=== PATIENT | male | born 1975 | race Caucasian/White ===

== ENCOUNTER 2017-01-03 09:11 | Day surgery (SDC) | payer OTHER ==
[~2017-01-03] VITALS: Ht 190.5 cm; Wt 97.0 kg
[2017-01-03] VITALS (8 sets, daily range): BP systolic 114–146; BP diastolic 69–83; PULSE 65–80; RESP 16–20; Ht 190.5 cm; Wt 97.0 kg
[~2017-01-03 09:11] MED LIST: CEFAZOLIN 1 GM INJ ONE; CEFAZOLIN 2 GM/50 ML (PMX) 50 ML IVPB SCH; DEXAMETHASONE 4 MG/ML 1 ML INJ ONE; ONDANSETRON 4 MG INJ ONE; SOD CHLORIDE 0.9% 1,000 ML IV SCH; SUCCINYLCHOLINE CHLORIDE 100 MG/5 ML SYG IV ONE
[2017-01-03] MEDS ORDERED: BUPR1FIL3 SL (09:34)
[2017-01-03] MEDS ORDERED: BUPR8TAB SL (09:36)
[2017-01-03] MEDS ORDERED: POLYMYXIN/BACITRACIN 1L IRRIG ONE (10:05)
[2017-01-03] MEDS ORDERED: BUPIVACAINE 0.25% (MPF) 30 ML INJ ONE (10:05)
[2017-01-03 10:10] LABS: ADD SCAN DIFF NO
[2017-01-03 10:13] LABS: BASOPHILS % 0.7 % (0.0-2.0); EOSINOPHILS # 0.4 10^3/ul (0.0-0.5); EOSINOPHILS % 6.8 % (0.0-7.0); HEMATOCRIT 42.9 % (42.0-52.0); LYMPHOCYTES # 2.5 10^3/ul (0.8-2.9); LYMPHOCYTES % 44.8 % (15.0-51.0); MEAN CORPUSCULAR HEMOGLOBIN 27.7 pg (29.0-33.0); MEAN CORPUSCULAR HGB CONC 32.6 g/dl (32.0-37.0); MEAN CORPUSCULAR VOLUME 84.8 fl (82.0-101.0); MEAN PLATELET VOLUME 10.5 fl (7.4-10.4); MONOCYTE # 0.5 10^3/ul (0.3-0.9); MONOCYTES % 8.4 % (0.0-11.0); NEUTROPHIL # 2.2 10^3/ul (1.6-7.5); NEUTROPHILS % 39.1 % (39.0-77.0); PLATELET COUNT 194 10^3/UL (140-415); RED BLOOD COUNT 5.06 10^6/ul (4.70-6.10); WHITE BLOOD COUNT 5.6 10^3/ul (4.8-10.8)
[2017-01-03] MEDS ORDERED: PROPOFOL 20 ML ONE (10:13)
[2017-01-03] MEDS ORDERED: FENTAnyl 50 MCG/ML VIAL ONE (10:13)
[2017-01-03] MEDS ORDERED: GLYCOPYRROLATE 0.4 MG INJ ONE (10:13)
[2017-01-03] MEDS ORDERED: MIDAZOLAM 1 MG/ML 2 ML INJ ONE (10:13)
[2017-01-03] MEDS ORDERED: NEOSTIGMINE 3 MG/3 ML SYRINGE ONE (10:13)
[2017-01-03] MEDS ORDERED: ROCURONIUM 50 MG INJ ONE (10:13)
[2017-01-03] MEDS ORDERED: LIDOCAINE 2% (SDV) 5 ML INJ ONE (10:13)
[2017-01-03 10:32] LABS: INR 0.91; PROTIME 12.3 Sec (12.2-14.2)
[2017-01-03 10:33] LABS: PARTIAL THROMBOPLASTIN TIME 28.7 Sec (25.0-35.0)
[2017-01-03 10:37] LABS: ALBUMIN 4.5 g/dl (3.3-4.9); ALBUMIN/GLOBULIN RATIO 1.8; BILIRUBIN,INDIRECT 0.5 mg/dl (0-1.1); BILIRUBIN,TOTAL 0.5 mg/dl (0.2-1.3)
[2017-01-03 10:41] LABS: POTASSIUM 4.6 mmol/L (3.5-5.1)
[2017-01-03 10:42] LABS: CALCIUM 9.3 mg/dl (8.4-10.2); CREATININE 1.04 mg/dl (0.61-1.24)
[2017-01-03] MEDS ORDERED: POLYMYXIN/BACITRACIN 1L IRRIG IRR ONE (11:00)
[2017-01-03] MEDS ORDERED: BUPIVACAINE 0.25% (STERILE-PAK) 30 ML INJ INJ ONE (11:00)
[2017-01-03] MEDS ORDERED: morphine (1 MG/ML) 10ML SYRINGE IV PRN ×3 (11:30)
[2017-01-03] MEDS ORDERED: HYDROmorphONE (0.2 MG/ML) 10ML SYG IV PRN ×3 (11:30)
[2017-01-03] MEDS ORDERED: LABETALOL HCL 20MG INJ IV PRN (11:30)
[2017-01-03] MEDS ORDERED: DIPHENHYDRAMINE 50 MG INJ IV PRN (11:30)
[2017-01-03] MEDS ORDERED: EPHEDrine SULFATE 50 MG/5 ML SYG IV PRN (11:30)
[2017-01-03] MEDS ORDERED: ATROPINE 1 MG/10 ML SYRINGE IV PRN (11:30)
[2017-01-03] MEDS ORDERED: MIDAZOLAM 1 MG/ML 2 ML INJ IV PRN (11:30)
[2017-01-03] MEDS ORDERED: FENTAnyl 50 MCG/ML VIAL IV PRN ×2 (11:30)
[2017-01-03] MEDS ORDERED: MEPERIDINE 25 MG INJ IV PRN (11:30)
[2017-01-03] MEDS ORDERED: OXYCODONE/ACETAMINOPHEN (5/325) TAB PO PRN ×2 (11:30)
[2017-01-03] MEDS ORDERED: hydrALAzine 20 MG INJ IV PRN (11:30)
[2017-01-03] MEDS ORDERED: ONDANSETRON 4 MG INJ IV PRN (11:30)
[2017-01-03] MEDS ORDERED: ACETAMINOPHEN/CODEINE #3 TAB PO ONE (11:30)
--- NOTE | 2017-01-03 11:31 | OPR ---
Date/Time of Note Date/Time of Note DATE: 01/03/17 TIME: 11:30 Operative Report Procedure Date: Jan 03, 2017 Preoperative Diagnosis LIH incarcerated Postoperative Diagnosis same Operation Performed LIH repair with mesh ilioinguinal nerve block Surgeon: Cruz COX G. SEONG Jan 03, 2017 11:31
--- NOTE | 2017-01-03 11:50 | OPR ---
DATE OF OPERATION: 01/03/2017 INDICATION: This is a 41-year-old male with an incarcerated left inguinal hernia. He requests surg ical repair. Risks, alternatives, benefits, and personnel were discussed with the patient. The pat ient expressed understanding and consents to the operation. PREOPERATIVE DIAGNOSIS: Incarcerated left inguinal hernia. POSTOPERATIVE DIAGNOSIS: Incarcerated indirect left inguinal hernia. OPERATION PERFORMED: 1. Open incarcerated left inguinal hernia repair with mesh. 2. Left ilioinguinal nerve block. SURGEON: Mike Kaye MD SPECIMEN: None. COMPLICATIONS: None. ANESTHESIA: General. DESCRIPTION OF PROCEDURE: The patient was taken to the OR and prepped and draped in the usual ster ile fashion. Surgical timeout was performed. IV antibiotics were given. Left inguinal oblique inc ision was made with a 10 blade. Dissection cautery was carried down to external oblique fascia whi ch was opened with a 15 blade. This incision is extended inferior medially and lateral superiorly w ith Metzenbaum scissors. Cord structures were identified and encircled with a Chilton drain. Indir ect hernia was identified and manually reduced. The disk portion of the UltraPro hernia system mesh was secured in place with running 0 Prolene from the pubic tubercle along the shelving edge of the inguinal ligament and superiorly to the internal oblique with interrupted 3-0 Vicryl. Onlay mesh wa s secured in a similar fashion with a running 0 Prolene from the pubic tubercle along the shelving e dge of the inguinal ligament. Straps were created and reapproximated with interrupted 0 Prolene to recreate the inguinal ring. Onlay mesh was secured to the internal oblique with interrupted 3-0 Alexis ryl. External oblique fascia was closed with running 3-0 Vicryl. Aimee's was closed with interrup dorina 3-0 Vicryl. Skin was closed with skin kym. Local anesthesia was injected. A left ilioingu inal nerve block was performed by first identifying the ASIS and 2 cm medial and 2 cm inferior to th at site. Using a fanning motion, left inguinal nerve block was performed with Marcaine. There was good hemostasis. Dry dressings were applied. Dictated By: MIKE KAYE MD SB/CHRISTIN Conf#: [id number] DID#: [id number]
== END 2017-01-03 13:33 | disposition home or self-care (01) ==
LOC: SDS 09:11
PROVIDERS: ATTEND Surgery
DX: K40.30 Unilateral inguinal hernia, with obstruction, without gangrene, not specified as recurrent (principal)
CPT/HCPCS: 49507; 80053; 85025; 85610; 85730; C1781; J0690; J1100; J1170; J2175; J2250; J2405; J2710; J3010; J7999; Z7512; Z7610